=== PATIENT | female | born 1975 | race Two or more races ===

== ENCOUNTER 2018-06-27 09:40 | Emergency (ER) | payer BC ==
[2018-06-27 10:04] VITALS: BP 155/92
--- NOTE | 2018-06-27 10:08 | UC ---
Abdominal Pain Female HPI - HPI Summary HPI Summary: 42 yo female presents with generalized abdominal cramping and diarrhea for the last 3 days. She tells me that 3 days ago (Friday) she developed watery diarrhea and was up all night. The next day () this improved, but still had loose stool. Yesterday was much better, but still had some generalized abdominal cramping with occasional loose stools. Yesterday when she went she felt a burning sensation around her anus and had a sensation of incomplete voiding with BM. She thought she might have a hemorrhoid as she has had these in the past, so she used some OTC hemorrhoid cream with mild relief. She is very worried because she has a large abdominal hernia and wants to be sure there is not a "blockage". She is eating and drinking well. Denies fever, chills , SOB, chest pain, nausea, vomiting, dysuria, or blood in stool. - History of Current Complaint Chief Complaint: UCGU Stated Complaint: ABDOMINAL COMPLAINT Time Seen by Provider: 06/27/18 10:07 Hx Last Menstrual Period: 06/17/18 Onset/Duration: Sudden Onset Severity Initially: Moderate Severity Currently: Moderate Pain Intensity: 5 Pain Scale Used: 0-10 Numeric Location: Diffuse Allergies/Adverse Reactions: Allergies Allergy/AdvReac Type Severity Reaction Status Date / Time No Known Allergies Allergy Verified 06/27/18 10:04 Home Medications: Home Medications NK [No Home Medications Reported] 06/27/18 [History Confirmed 06/27/18] PMH/Surg Hx/FS Hx/Imm Hx - Additional Past Medical History Additional PMH: None Previously Healthy: Yes - Surgical History Surgical History: Yes Surgery Procedure, Year, and Place: LAPAROSCOPIC CHOLECYSTECTOMY 2011. 03/2015 Umbilical Hernia Repair. X 2 - Family History Known Family History: Positive: None - Social History Occupation: Employed Full-time Lives: With Family Alcohol Use: Rare Substance Use Type: None Smoking Status (MU): Never Smoked Tobacco Review of Systems Constitutional: Negative Skin: Negative Respiratory: Negative Cardiovascular: Negative Gastrointestinal: Abdominal Pain, Diarrhea Genitourinary: Negative Neurovascular: Negative Neurological: Negative Psychological: Negative All Other Systems Reviewed And Are Negative: Yes Physical Exam - Summary Physical Exam Summary: GENERAL: NAD. WDWN. No pain distress. SKIN: No rashes, sores, lesions, or open wounds. NECK: Supple. Nontender. No lymphadenopathy. CHEST: CTAB. No r/r/w. No accessory muscle use. Breathing comfortably and in no distress. CV: RRR. Without m/r/g. Pulses intact. Brisk cap refill. ABDOMEN: Mild generalized TTP. Large abdominal wall hernia. Soft. No distention or guarding. No CVA tenderness. Bowel sounds present RECTAL: No active bleeding, hemorrhoids, or fissures appreciated. No stool in vault. NEURO: Alert. CN II-XII grossly intact. PSYCH: Age appropriate behavior. Jacqui CHAMPION present for exam Triage Information Reviewed: Yes Vital Signs: Initial Vital Signs Temp 98.2 F 06/27/18 09:57 Pulse 93 06/27/18 09:57 Resp 16 06/27/18 09:57 BP 155/92 06/27/18 09:57 Pulse Ox 100 06/27/18 09:57 Laboratory Tests 06/27/18 06/27/18 10:51 10:55 POC Urine Color Dark yellow POC Urine Clarity Clear POC Urine pH 5.5 POC Ur Specif [place] 1.025 POC Urine Protein Negative POC Ur Glucose (UA) Negative POC Urine Ketones Negative POC Urine Blood Trace-intact A POC Urine Nitrite Negative POC Urine Bilirubin Negative POC Urine Urobilinogen 0.2 POC U Leukocyte Esteras Negative POC Ur Test Negative Vital Signs Reviewed: Yes Abd Pain Female Course/Dx - Course Course Of Treatment: Abdomen XR: IMPRESSION: NO DIAGNOSTIC ABNORMALITIES. UA and negative. Suspect viral gastroenteritis. Will send for stool cultures and have her advance her diet as tolerated. Go to ED if symptoms worsen - Differential Dx/Diagnosis Provider Diagnoses: Gastroenteritis Discharge - Sign-Out/Discharge Documenting (check all that apply): Patient Departure - Discharge Plan Condition: Stable Disposition: HOME Patient Education Materials: Gastroenteritis (ED) Referrals: Osiris Nagel DO [Primary Care Provider] - Additional Instructions: If you develop a fever, shortness of breath, chest pain, new or worsening symptoms - please call your PCP or go to the ED. Your blood pressure was high at todays visit. Please see your primary provider within 4 weeks for recheck and re-evaluation. Per institutional requirements, I have reviewed the chart, however, I was not consulted specifically or made aware of this patient by the above midlevel provider. I did not personally evaluate, interact with , or disposition this patient. - Billing Disposition and Condition Condition: STABLE Disposition: Home
--- NOTE | 2018-06-27 10:47 | RAD ---
INDICATION: Abdominal pain COMPARISON: None TECHNIQUE: Erect and supine views of the abdomen are submitted. FINDINGS: Bones: There are no acute bony findings. Soft tissues: The soft tissues appear normal. The psoas margins are sharp. Bowel gas pattern: Normal Calcifications: There are no abnormal calcifications. Other: There are clips in gallbladder fossa. IMPRESSION: NO DIAGNOSTIC ABNORMALITIES.
== END 2018-06-27 11:17 | disposition home or self-care (01) ==
LOC: UCEAST 09:40
DX: K52.9 Noninfective gastroenteritis and colitis, unspecified (principal); R10.84 Generalized abdominal pain
CPT/HCPCS: 74019; 81003; 84702; 99211; G0463